=== PATIENT | male | born 1995 | race Caucasian/White ===

== ENCOUNTER 2018-02-19 09:13 | Emergency (ER) | payer BC ==
[~2018-02-19] VITALS: Ht 177.8 cm; Wt 74.8 kg
[2018-02-19 09:38] LABS: BILIRUBIN,URINE NEGATIVE (NEG); CLARITY,URINE CLEAR; COLOR,URINE YELLOW; NITRITE,URINE NEGATIVE (NEG); PH,URINE 6.5; PROTEIN,URINE NEGATIVE (NEG-TRACE); UROBILINOGEN,URINE 0.2 mg/dL (0.2 mg/dL)
[2018-02-19 09:45] LABS: BASO # 0.1 x10^3/uL (0.0-0.2); BASO % 1 % (0-3); EOS % 15 % (0-3); HEMATOCRIT 42.5 % (39.0-53.0); LYMPH # 2.1 x10^3/uL (1.0-4.8); LYMPH % 31 % (24-48); MEAN CORPUSCULAR HEMOGLOBIN 35 pg (25-35); MEAN CORPUSCULAR HGB CONC 35 g/dL (31-37); MEAN CORPUSCULAR VOLUME 99 fL (79-100); MONO # 0.7 x10^3/uL (0.0-1.1); MONO % 11 % (0-9); NEUT # 2.8 x10^3uL (1.8-7.7); NEUT % 43 % (31-73); PLATELET COUNT 286 x10^3/uL (140-400); RED BLOOD COUNT 4.28 x10^6/uL (4.30-5.70); WHITE BLOOD COUNT 6.6 x10^3/uL (4.0-11.0)
[2018-02-19 09:51] LABS: BACTERIA,URINE FEW /HPF (0-FEW); RBC,URINE 0 /HPF (0-2); SQUAMOUS EPITHELIAL CELL,UR OCC /LPF; WBC,URINE 0 /HPF (0-4)
[2018-02-19 09:56] LABS: CALCIUM 9.5 mg/dL (8.5-10.1); CREATININE 1.4 mg/dL (0.7-1.3); GFR 62.3; POTASSIUM 4.3 mmol/L (3.5-5.1)
[2018-02-19] MEDS ORDERED: IV NORMAL SALINE 1000ML BAG 1,000 ML IV ONE (10:00)
[2018-02-19] MEDS ORDERED: HYDROcodone/APAP 5/325MG 1 TAB TABLET PO ONE (10:00)
--- NOTE | 2018-02-19 10:27 | RAD ---
Examination: ABDOMEN LTD History: DX: RLQ ABD pain x 3 days-Eval for appendicitis IMP: scanned RLQ and RT lat LQ at area of patient's pain. Appendix not seen-no FF seen- Nothing seen in RT lateral pelvis at area of PT pain Comparison/Correlation: None Findings: Limited right lower quadrant ultrasound exam was performed. There is no fluid-filled tubular structure to suggest appendicitis. No ascites. No loculated collection identified. Impression: No evidence of appendicitis. Correlate clinically in determining further evaluation. Electronically signed by: Ras Restrepo MD (02/19/2018 10:24 AM) [facility]
[2018-02-19] MEDS ORDERED: CYCL10TA2 PO (10:34)
[2018-02-19] MEDS ORDERED: IBUP-1060 PO (10:34)
--- NOTE | 2018-02-19 10:39 | PHYS DOC ---
Past Medical History Past Medical History: No Pertinent History Past Surgical History: No Surgical History Alcohol Use: Occasionally Drug Use: Marijuana Social History Narrative: occasional marijuana use Adult General Chief Complaint Chief Complaint: ABDOMINAL PAIN HPI HPI Patient is a 23 year old male who presents with abdominal and back pain. Patient states he began having pain in the right lower back over the last 48 hours. Pain became worse this morning so he decided to come to the ER. He sometimes feels the pain radiated to the right lower quadrant as well. No urinary symptoms. No nausea or vomiting. No fever or chills. He has no prior history of abdominal surgeries and no prior history of similar symptoms. 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 Review of Systems Review of Systems Constitutional: Denies fever or chills Eyes: Denies change in visual acuity HENT: Denies nasal congestion or sore throat Respiratory: Denies cough or shortness of breath Cardiovascular: No additional information not addressed in HPI GI: Denies nausea, vomiting, bloody stools or diarrhea : Denies hematuria Integument: Denies rash or skin lesions Neurologic: Denies headache, focal weakness or sensory changes All other systems were reviewed and found to be within normal limits, except as documented in this note. Current Medications Current Medications Current Medications Medications (Trade) Dose Ordered Sig/Kirsten Start Time Stop Time Status Last Admin Dose Admin Acetaminophen/ Hydrocodone Bitart (Lortab 5/325) 2 tab 1X ONCE 02/19/18 10:00 02/19/18 10:01 DC 02/19/18 10:01 2 TAB Sodium Chloride 1,000 ml @ 1,000 mls/hr 1X ONCE 02/19/18 10:00 02/19/18 10:59 02/19/18 10:04 1,000 MLS/HR Allergies Allergies Allergies Coded Allergies Type Severity Reaction Last Updated Verified No Known Drug Allergies 05/06/15 No Physical Exam Physical Exam Constitutional: Well developed, well nourished, no acute distress, non-toxic appearance HENT: Normocephalic, atraumatic, bilateral external ears normal, oropharynx moist Eyes: PERRLA, EOMI, conjunctiva normal Neck: Normal range of motion, no tenderness Cardiovascular:Heart rate regular rhythm, no murmur Lungs & Thorax: Bilateral breath sounds clear to auscultation Abdomen: Bowel sounds normal, soft, no tenderness Skin: Warm, dry, no erythema, no rash Back: No tenderness, no CVA tenderness Extremities: No tenderness, no edema Neurologic: Alert and oriented X 3 Psychologic: Affect normal Current Patient Data Vital Signs Vital Signs Date Time Temp Pulse Resp B/P (MAP) Pulse Ox O2 Delivery O2 Flow Rate FiO2 02/19/18 10:01 16 100 Room Air 02/19/18 09:17 98.0 69 131/83 (99) 98.0 Lab Values Laboratory Tests Test 02/19/18 09:15 02/19/18 09:30 Urine Collection Type Void Urine Color Yellow Urine Clarity Clear Urine pH 6.5 Urine Specific [place] 1.025 Urine Protein Negative mg/dL (NEG-TRACE) Urine Glucose (UA) Negative mg/dL (NEG) Urine Ketones (Stick) Negative mg/dL (NEG) Urine Blood Negative (NEG) Urine Nitrite Negative (NEG) Urine Bilirubin Negative (NEG) Urine Urobilinogen Dipstick 0.2 mg/dL (0.2 mg/dL) Urine Leukocyte Esterase Negative (NEG) Urine RBC 0 /HPF (0-2) Urine WBC 0 /HPF (0-4) Urine Squamous Epithelial Cells Occ /LPF Urine Bacteria Few /HPF (0-FEW) Urine Mucus Slight /LPF White Blood Count 6.6 x10^3/uL (4.0-11.0) Red Blood Count 4.28 x10^6/uL (4.30-5.70) L Hemoglobin 15.0 g/dL (13.0-17.5) Hematocrit 42.5 % (39.0-53.0) Mean Corpuscular Volume 99 fL (79-100) Mean Corpuscular Hemoglobin 35 pg (25-35) Mean Corpuscular Hemoglobin Concent 35 g/dL (31-37) Red Cell Distribution Width 13.0 % (11.5-14.5) Platelet Count 286 x10^3/uL (140-400) Neutrophils (%) (Auto) 43 % (31-73) Lymphocytes (%) (Auto) 31 % (24-48) Monocytes (%) (Auto) 11 % (0-9) H Eosinophils (%) (Auto) 15 % (0-3) H Basophils (%) (Auto) 1 % (0-3) Neutrophils # (Auto) 2.8 x10^3uL (1.8-7.7) Lymphocytes # (Auto) 2.1 x10^3/uL (1.0-4.8) Monocytes # (Auto) 0.7 x10^3/uL (0.0-1.1) Eosinophils # (Auto) 1.0 x10^3/uL (0.0-0.7) H Basophils # (Auto) 0.1 x10^3/uL (0.0-0.2) Sodium Level 142 mmol/L (136-145) Potassium Level 4.3 mmol/L (3.5-5.1) Chloride Level 103 mmol/L (98-107) Carbon Dioxide Level 32 mmol/L (21-32) Anion Gap 7 (6-14) Blood Urea Nitrogen 20 mg/dL (8-26) Creatinine 1.4 mg/dL (0.7-1.3) H Estimated GFR (Cockcroft-Gault) 62.3 Glucose Level 76 mg/dL (70-99) Calcium Level 9.5 mg/dL (8.5-10.1) Laboratory Tests 02/19/18 09:30 Laboratory Tests 02/19/18 09:30 EKG EKG [] Radiology/Procedures Radiology/Procedures US of RLQ: no signs of appendicitis Course & Med Decision Making Course & Med Decision Making Pertinent Labs and Imaging studies reviewed. (See chart for details) Patient is evaluated in the emergency department for low back pain on the right which also radiates to the right abdomen. His abdominal exam is completely benign. Labs were completed. His white blood cell count was not elevated. His chemistry panel is all normal except for some mild elevation of creatinine. He was given 1 L of fluid in the ER. Based on his exam, no CT imaging is indicated at this time. Ultrasound was completed and there were no signs of acute appendicitis. Plan is for discharge home. Patient is advised to come back to the ER for any worsening or developing symptoms. He is given Flexeril and ibuprofen for pain control at home. Dragon Disclaimer Dragon Disclaimer This electronic medical record was generated, in whole or in part, using a voice recognition dictation system. Departure Departure Impression: Primary Impression: Musculoskeletal pain Additional Impression: Abdominal pain Disposition: HOME, SELF-CARE Condition: GOOD Patient Instructions: Abdominal Pain (Nonspecific), Musculoskeletal Pain Scripts Ibuprofen (IBUPROFEN) 800 Mg Tablet 800 MG PO PRN TID PRN for PAIN, #20 TAB take with food or milk to avoid upsetting stomach Prov: LICO BANERJEE DO 02/19/18 Cyclobenzaprine Hcl (CYCLOBENZAPRINE HCL) 10 Mg Tablet 1 TAB PO TID for muscle spasm, #30 TAB Prov: LICO BANERJEE DO 02/19/18 Problem Qualifiers LICO BANERJEE DO Feb 19, 2018 10:39
[2018-02-19 10:41] VITALS: BP 121/87
== END 2018-02-19 10:52 | disposition home or self-care (01) ==
LOC: ER 09:13
DX: M54.5 Low back pain (principal); R10.31 Right lower quadrant pain
CPT/HCPCS: 36415; 76705; 80048; 81001; 85025; 99285; J7030

== ENCOUNTER 2019-10-07 19:33 | Emergency (ER) | payer BC ==
[~2019-10-07] VITALS: Ht 172.7 cm; Wt 77.2 kg
[~2019-10-07 19:33] MED LIST: CYCL10TA2 PO; IBUP-1060 PO
[2019-10-07] MEDS ORDERED: fentaNYL PF VIAL 100 MCG/2 ML VIAL IV PRN (20:00)
[2019-10-07] MEDS ORDERED: ONDANSETRON PF 4 MG/2 ML VIAL. IVP ONE ×2 (20:00→22:00)
[2019-10-07] MEDS ORDERED: IV NORMAL SALINE 1000ML BAG 1,000 ML IV SCH (20:00)
[2019-10-07 20:07] LABS: BASO # 0.1 x10^3/uL (0.0-0.2); BASO % 1 % (0-3); EOS % 0 % (0-3); HEMATOCRIT 44.9 % (39.0-53.0); HEMOGLOBIN 15.8 g/dL (13.0-17.5); LYMPH # 0.7 x10^3/uL (1.0-4.8); LYMPH % 7 % (24-48); MEAN CORPUSCULAR HEMOGLOBIN 34 pg (25-35); MEAN CORPUSCULAR HGB CONC 35 g/dL (31-37); MEAN CORPUSCULAR VOLUME 97 fL (79-100); MONO # 0.3 x10^3/uL (0.0-1.1); MONO % 3 % (0-9); NEUT # 9.2 x10^3/uL (1.8-7.7); NEUT % 90 % (31-73); PLATELET COUNT 330 x10^3/uL (140-400); RED BLOOD COUNT 4.61 x10^6/uL (4.30-5.70); RED CELL DISTRIBUTION WIDTH 12.7 % (11.5-14.5); WHITE BLOOD COUNT 10.2 x10^3/uL (4.0-11.0)
[2019-10-07 20:07] LABS: BILIRUBIN,URINE MODERATE (NEG); CLARITY,URINE CLEAR; COLOR,URINE AMBER; NITRITE,URINE NEGATIVE (NEG); PH,URINE 5.5 (<5.0-8.0); PROTEIN,URINE 100 mg/dL (NEG-TRACE)
[2019-10-07 20:14] LABS: BACTERIA,URINE 0 /HPF (0-FEW); RBC,URINE 0 /HPF (0-2)
[2019-10-07 20:15] LABS: CALCIUM 10.2 mg/dL (8.5-10.1); CREATININE 1.6 mg/dL (0.7-1.3); GFR 52.9; POTASSIUM 4.4 mmol/L (3.5-5.1)
[2019-10-07 20:15] LABS: AMORPHOUS SEDIMENT,UR PRESENT /HPF; HYALINE CASTS, URINE MANY /HPF; SQUAMOUS EPITHELIAL CELL,UR OCC /LPF
[2019-10-07 20:21] LABS: ALBUMIN 5.1 g/dL (3.4-5.0); ALBUMIN/GLOBULIN RATIO 1.3 (1.0-1.7); TOTAL PROTEIN 8.9 g/dL (6.4-8.2)
[2019-10-07 20:35] LABS: % LYMPHS 3 % (24-48); % MONOS 5 % (0-10); % SEGS 92 % (35-66); PLT ESTIMATE ADEQUATE (ADEQUATE)
--- NOTE | 2019-10-07 20:51 | PHYS DOC ---
Past Medical History Past Medical History: No Pertinent History Past Surgical History: No Surgical History Smoking Status: Never Smoker Alcohol Use: Occasionally Drug Use: Marijuana General Adult EDM: Chief Complaint: NAUSEA/VOMITING/DIARRHA HPI: HPI: Patient is a 24 year old male who presents with complaint of upper abdominal pain with nausea and vomiting that started this morning. Patient rates pain at a 7 to an 8 out of 10. He states that he has not been able to keep anything down including water since this morning. Patient states that he has been working outdoors for the last few days in the heat and today it just got too much for him. He denies any diarrhea. He does admit to a headache. Patient is not aware of any fever. [] Review of Systems: Review of Systems: Constitutional: Denies fever or chills. [] Respiratory: Denies cough or shortness of breath. [] Cardiovascular: Denies chest pain or edema. [] GI: Complains of abdominal pain with nausea and vomiting. [] Neurologic: Denies headache, focal weakness or sensory changes. [] Heart Score: Risk Factors: Risk Factors: DM, Current or recent (<one month) smoker, HTN, HLP, family history of CAD, obesity. Risk Scores: Score 0 - 3: 2.5% MACE over next 6 weeks - Discharge Home Score 4 - 6: 20.3% MACE over next 6 weeks - Admit for Clinical Observation Score 7 - 10: 72.7% MACE over next 6 weeks - Early Invasive Strategies Current Medications: Current Medications Medications (Trade) Dose Ordered Sig/[facility] Start Time Stop Time Status Last Admin Dose Admin Fentanyl Citrate (Fentanyl 2ml Vial) 50 mcg PRN Q15MIN PRN 10/07/19 20:00 10/08/19 19:59 10/07/19 20:14 50 MCG Ondansetron HCl (Zofran) 4 mg 1X ONCE 10/07/19 20:00 10/07/19 20:03 DC 10/07/19 20:12 4 MG Sodium Chloride 1,000 ml @ 1,000 mls/hr Q1H 10/07/19 20:00 10/07/19 20:59 10/07/19 20:13 1,000 MLS/HR Allergies: Allergies: Allergies Coded Allergies Type Severity Reaction Last Updated Verified No Known Drug Allergies 05/06/15 No Physical Exam: PE: Constitutional: Well developed, well nourished, no acute distress, non-toxic appearance. [] Neck: Normal range of motion, no tenderness, supple, no stridor. [] Cardiovascular: Regular rate and rhythm [] Lungs & Thorax: Bilateral breath sounds clear to auscultation [] Abdomen: Bowel sounds normal, soft, with epigastric tenderness. [] Skin: Warm, dry, no erythema, no rash. [] Neurologic: Alert and oriented X 3, no focal deficits noted. [] Current Patient Data: Labs: Laboratory Tests Test 10/07/19 19:35 10/07/19 19:45 Urine Collection Type Unknown Urine Color [place] Urine Clarity Clear Urine pH 5.5 (<5.0-8.0) Urine Specific [place] >=1.030 (1.000-1.030) Urine Protein 100 mg/dL (NEG-TRACE) Urine Glucose (UA) Negative mg/dL (NEG) Urine Ketones (Stick) 40 mg/dL (NEG) Urine Blood Negative (NEG) Urine Nitrite Negative (NEG) Urine Bilirubin Moderate (NEG) Urine Urobilinogen Dipstick 1.0 mg/dL (0.2 mg/dL) Urine Leukocyte Esterase Trace (NEG) Urine RBC 0 /HPF (0-2) Urine WBC 1-4 /HPF (0-4) Urine Squamous Epithelial Cells Occ /LPF Urine Amorphous Sediment Present /HPF Urine Bacteria 0 /HPF (0-FEW) Urine Hyaline Casts Many /HPF Urine Mucus Mod /LPF White Blood Count 10.2 x10^3/uL (4.0-11.0) Red Blood Count 4.61 x10^6/uL (4.30-5.70) Hemoglobin 15.8 g/dL (13.0-17.5) Hematocrit 44.9 % (39.0-53.0) Mean Corpuscular Volume 97 fL (79-100) Mean Corpuscular Hemoglobin 34 pg (25-35) Mean Corpuscular Hemoglobin Concent 35 g/dL (31-37) Red Cell Distribution Width 12.7 % (11.5-14.5) Platelet Count 330 x10^3/uL (140-400) Neutrophils (%) (Auto) 90 % (31-73) H Lymphocytes (%) (Auto) 7 % (24-48) L Monocytes (%) (Auto) 3 % (0-9) Eosinophils (%) (Auto) 0 % (0-3) Basophils (%) (Auto) 1 % (0-3) Neutrophils # (Auto) 9.2 x10^3/uL (1.8-7.7) H Lymphocytes # (Auto) 0.7 x10^3/uL (1.0-4.8) L Monocytes # (Auto) 0.3 x10^3/uL (0.0-1.1) Eosinophils # (Auto) 0.0 x10^3/uL (0.0-0.7) Basophils # (Auto) 0.1 x10^3/uL (0.0-0.2) Segmented Neutrophils % 92 % (35-66) H Lymphocytes % 3 % (24-48) L Monocytes % 5 % (0-10) Platelet Estimate Adequate (ADEQUATE) Sodium Level 138 mmol/L (136-145) Potassium Level 4.4 mmol/L (3.5-5.1) Chloride Level 97 mmol/L (98-107) L Carbon Dioxide Level 23 mmol/L (21-32) Anion Gap 18 (6-14) H Blood Urea Nitrogen 26 mg/dL (8-26) Creatinine 1.6 mg/dL (0.7-1.3) H Estimated GFR (Cockcroft-Gault) 52.9 BUN/Creatinine Ratio 16 (6-20) Glucose Level 137 mg/dL (70-99) H Calcium Level 10.2 mg/dL (8.5-10.1) H Total Bilirubin 1.0 mg/dL (0.2-1.0) Aspartate Amino Transferase (AST) 19 U/L (15-37) Alanine Aminotransferase (ALT) 27 U/L (16-63) Alkaline Phosphatase 127 U/L (46-116) H Total Protein 8.9 g/dL (6.4-8.2) H Albumin 5.1 g/dL (3.4-5.0) H Albumin/Globulin Ratio 1.3 (1.0-1.7) Lipase 50 U/L (73-393) L Laboratory Tests 10/07/19 19:45 Laboratory Tests 10/07/19 19:45 Vital Signs: Vital Signs Date Time Temp Pulse Resp B/P (MAP) Pulse Ox O2 Delivery O2 Flow Rate FiO2 10/07/19 20:14 18 99 Room Air 10/07/19 20:01 98.3 77 138/85 (102) 98.3 EKG: EKG: [] Radiology/Procedures: Radiology/Procedures: [] Impression: PROCEDURE: CT ABD PELV W/ IV CONTRST ONLY Exam: CT of abdomen and pelvis with contrast INDICATION: Upper abdominal pain TECHNIQUE: Sequential axial images through the abdomen and pelvis obtained following the administration of 60 mL of Isovue-370 IV contrast. Sagittal and coronal reformatted images were reconstructed from the axial data and reviewed. Comparisons: None FINDINGS: Heart size is normal. No pericardial effusion. Visualized lung bases are clear. No pleural effusion. Liver, spleen, pancreas, gallbladder and adrenals are unremarkable. Kidneys demonstrate symmetric enhancement. No perinephric inflammation or hydronephrosis. No renal or ureteral calculi are identified. Bladder is partially distended and appears thin-walled. Prostate is not enlarged. Large and small bowel are unremarkable. Appendix is not identified. No free intra-abdominal air or fluid. No obstruction. Abdominal aorta has a normal course and caliber. Abdominal vasculature is patent. No enlarged abdominal lymph nodes are identified. No suspicious osseous lesions or acute fractures. IMPRESSION: No acute process identified within the abdomen or pelvis. Exposure: One or more of the following in the visualized dose reduction techniques were utilized for this examination: 1. Automated exposure control 2. Adjustment of the MA and/or KV according to patient size 3. Use of iterative of reconstructive technique Electronically signed by: Yaron Orozco MD (10/07/2019 9:37 PM) [id number] DICTATED and SIGNED BY: YARON OROZCO MD DATE: 10/07/192136 Course & Med Decision Making: Course & Med Decision Making Pertinent Labs and Imaging studies reviewed. (See chart for details) [] Dragon Disclaimer: Dragon Disclaimer: This electronic medical record was generated, in whole or in part, using a voice recognition dictation system. Departure Departure Impression: Primary Impression: Heat cramp, initial encounter Additional Impression: Nausea and vomiting Qualified Codes: R11.2 - Nausea with vomiting, unspecified Disposition: HOME, SELF-CARE Condition: STABLE Referrals: NO PCP (PCP) Patient Instructions: Form - Excuse from Work, School, or Physical Activity, Heat-Related Illness, Nausea and Vomiting Scripts Tramadol Hcl (TRAMADOL HCL) 50 Mg Tablet 50 MG PO Q6HRS PRN for PAIN, #12 TAB Prov: ADRIAN ORLANDO Jr. DO 10/07/19 Ondansetron (ONDANSETRON ODT) 4 Mg Tab.rapdis 1 TAB PO PRN Q6-8HRS PRN for NAUSEA, #15 TAB Prov: ADRIAN ORLANDO Jr. DO 10/07/19 Justicifation of Admission Dx: Justifications for Admission: Justification of Admission Dx: N/A ADRIAN ORLANDO Jr. DO Oct 07, 2019 20:51
[2019-10-07] MEDS ORDERED: IV NORMAL SALINE 1000ML BAG 1,000 ML IV ONE (21:00)
[2019-10-07] MEDS ORDERED: IOHEXOL 300 MG/ML 100ML VIAL. IV ONE (21:15)
[2019-10-07] MEDS ORDERED: CONTRAST GIVEN. MC PRN (21:15)
--- NOTE | 2019-10-07 21:40 | RAD ---
Exam: CT of abdomen and pelvis with contrast INDICATION: Upper abdominal pain TECHNIQUE: Sequential axial images through the abdomen and pelvis obtained following the administration of 60 mL of Isovue-370 IV contrast. Sagittal and coronal reformatted images were reconstructed from the axial data and reviewed. Comparisons: None FINDINGS: Heart size is normal. No pericardial effusion. Visualized lung bases are clear. No pleural effusion. Liver, spleen, pancreas, gallbladder and adrenals are unremarkable. Kidneys demonstrate symmetric enhancement. No perinephric inflammation or hydronephrosis. No renal or ureteral calculi are identified. Bladder is partially distended and appears thin-walled. Prostate is not enlarged. Large and small bowel are unremarkable. Appendix is not identified. No free intra-abdominal air or fluid. No obstruction. Abdominal aorta has a normal course and caliber. Abdominal vasculature is patent. No enlarged abdominal lymph nodes are identified. No suspicious osseous lesions or acute fractures. IMPRESSION: No acute process identified within the abdomen or pelvis. Exposure: One or more of the following in the visualized dose reduction techniques were utilized for this examination: 1. Automated exposure control 2. Adjustment of the MA and/or KV according to patient size 3. Use of iterative of reconstructive technique Electronically signed by: Tyson Shah MD (10/07/2019 9:37 PM) [id number]
[2019-10-07] MEDS ORDERED: TRAM50TA PO (21:51)
[2019-10-07] MEDS ORDERED: ONDA4TAB12 PO (21:51)
[2019-10-07] MEDS ORDERED: fentaNYL PF VIAL 100 MCG/2 ML VIAL IVP ONE (22:00)
[2019-10-07 22:47] VITALS: BP 115/76
== END 2019-10-07 22:40 | disposition home or self-care (01) ==
LOC: ER 19:33
DX: T67.2XXA Heat cramp, initial encounter (principal); R11.2 Nausea with vomiting, unspecified; R10.13 Epigastric pain; X58.XXXA Exposure to other specified factors, initial encounter; Y93.89 Activity, other specified; Y92.89 Other specified places as the place of occurrence of the external cause; Y99.8 Other external cause status
CPT/HCPCS: 36415; 74177; 80053; 81001; 82550; 83690; 85007; 85025; 87086; 96361; 96374; 96375; 96376; 99285; J2405; J3010; J7030; Q9967